=== PATIENT | male | born 1960 | race Caucasian/White ===

== ENCOUNTER 2024-01-22 06:02 | Day surgery (SDC) | payer OTHER, SELFPAY ==
[2024-01-09 06:53] VITALS: BMI 32.7
[2024-01-09 07:03] LABS: INR 1.99; PT 22.8 Sec (11.4-14.6)
[2024-01-09 07:07] LABS: ALT (SGPT) 23 U/L (0-50); AST (SGOT) 24 U/L (17-59); Albumin 4.2 g/dl (3.5-5.0); Alkaline Phosphatase 81 U/L (38-126); Blood Urea Nitrogen 20 mg/dl (9-20); Calcium 9.1 mg/dl (8.4-10.2); Carbon Dioxide 27 mmol/L (22-30); Chloride 106 mmol/L (98-107); Estimated Creatinine Clearance 74 ml/min; Glucose 105 mg/dl (70-99); Magnesium 2.1 mg/dl (1.6-2.3); Potassium 4.5 mmol/L (3.5-5.1); Sodium 138 mmol/L (135-145); Total Bilirubin 0.4 mg/dl (0.2-1.3); eGFR > 60.00
[2024-01-09 07:31] LABS: % Basophils 0.8 % (0-2); % Eosinophils 1.8 % (0-6); % Immature Granulocytes 0.5 % (0-0.5); % Lymphocytes 25.9 % (20.5-51.1); % Monocytes 9.2 % (1.7-9.3); % Neutrophils 61.8 % (42.2-75.2); Absolute Basophils 0.1 10^3/uL (0-0.2); Absolute Eosinophils 0.1 10^3/uL (0-0.7); Absolute Monocytes 0.7 10^3/uL (0.1-0.6); Absolute Neutrophils 4.7 10^3/uL (1.4-6.5); Hematocrit 42.9 % (39.0-52.0); Hemoglobin 14.2 g/dL (13.0-18.0); Mean Corp Hgb Conc. 33.1 g/dL (33.0-37.0); Mean Corpuscular Hgb 29.5 pg (27.0-31.0); Mean Platelet Volume 10.8 fL (7.4-10.4); Nucleated Red Blood Cells % 0 % (-); Platelet Count 256 10^3/uL (130-400); Red Blood Cell Count 4.82 10^6/uL (4.70-6.10); Red Cell Dist. Width 12.5 % (11.5-14.5); White Blood Cell Count 7.6 10^3/uL (4.8-10.8)
--- NOTE | 2024-01-09 07:50 | HPS.HSE ---
Family Physician
-
Family Physician: Amado Campos
Chief Complaint
-
Persistent atrial fibrillation.
History of Present Illness
The patient is a 63 year old male presenting today for persistent atrial fibrillation. The patient reports mild shortness of breath, most notably with exertion, and fatigue likely secondary to this diagnosis. He recently underwent two
failed cardioversions for his arrhythmia at [facility]. He is currently rate controlled without the use of pharmacological therapy. He takes Xarelto for oral anticoagulation. He notes that his current symptoms interfere with his
activities of daily living and are overall impacting his quality of life. He is interested in pursuing pulmonary vein isolation for further arrhythmia management. He denies any current complaints today such as chest pain, shortness of breath at
rest, palpitations, nausea, vomiting, diarrhea, lightheadedness, dizziness, cough, sore throat, or fever.
Medical History
Past Medical History
Past Medical History: Reports Other
Additional Past Medical History:
1. Persistent atrial fibrillation, status post cardioversion x2; oral anticoagulation with Xarelto.
2. Hypertension.
3. Hyperlipidemia.
4. Sinus bradycardia, asymptomatic, with current loop monitor.
5. Obstructive sleep apnea, compliant with CPAP.
6. Colon polyps.
7. Hemorrhoids with intermittent hemorrhoidal bleeding.
8. Osteoarthritis.
9. Obesity, BMI 32.7.
10. Current tobacco abuse.
Past Surgical History: Reports Other
Additional Past Surgical History:
1. Cardioversion x2.
2. Loop monitor implantation.
3. Left knee arthroscopy.
4. [place] tooth extraction.
5. Colonoscopy.
Social History
Tobacco: Smoker (He is a current 4 cigarette per day smoker who has been smoking for the past 30+ years. He is attempting to quit smoking altogether. )
Alcohol: None
Living: Other (He lives with his daughter in a 2 story row home in [place]. )
Family History
Family History: Not pertinent
Allergies / Home Medications
Allergy/Medication List:
Home medications:
1. Centrum multivitamin 1 tablet p.o. daily.
2. Nutrafol 2 capsule p.o. twice a day.
3. Xarelto 20 mg p.o. daily.
4. Rosuvastatin 10 mg p.o. at bedtime.
5. Telmisartan 20 mg p.o. daily.
Allergies: No known allergies.
Review of Systems
-
A 12 point ROS was completed and negative except as noted: Yes
Physical Exam
Vital Signs
Blood pressure 125/84. Heart rate 83. Respirations 18. Pulse ox 97%.
Height 5 feet, 6.5 inches. Weight 93.3 kg. BMI 32.7.
Physical Exam
General: Well Developed, Well Nourished and No Apparent Distress
HEENT: NormoCephalic, Moist mucous membranes, Atraumatic and PERRLA
Respiratory: Clear
Cardiac: Irregular Rhythm
GI: Soft, Non Tender, Non Distended and Other (Obese. )
Musculoskeletal: Normal Gait & Station
Skin: Warm and Dry
Neuro: AO x 3 and Nonfocal/grossly intact
Laboratory Results
-
01/09/24 06:25
01/09/24 06:25
Laboratory Results
PT 22.8 Sec (11.4-14.6) H 01/09/24 06:25
INR 1.99 01/09/24 06:25
Total Bilirubin 0.4 mg/dl (0.2-1.3) 01/09/24 06:25
AST 24 U/L (17-59) 01/09/24 06:25
ALT 23 U/L (0-50) 01/09/24 06:25
Alkaline Phosphatase 81 U/L (38-126) 01/09/24 06:25
Blood type A positive.
EKG 01/09/2024: Atrial fibrillation.
Chest CT 01/09/2024: No evidence of left atrial thrombus. There are no abnormal pleural or parenchymal pulmonary masses. There is no significant parenchymal airspace disease. There is no pleural effusion. There are no abnormal mediastinal masses.
There is no hilar lymphadenopathy. There is no mediastinal lymphadenopathy.
Echocardiogram 11/18/2023: Mild to moderately dilated left atrium. Ejection fraction is 55-60%.
Stress test 11/18/2023: No ECG criteria for or symptoms suggestive of ischemia. Normal perfusion imaging with normal left ventricular wall motion and systolic function.
Impression/Plan
-
IMPRESSION/PLAN:
1. Persistent atrial fibrillation: The patient is in need of pulmonary vein isolation with Dr. Scooby Mcarthur on 01/22/2024. The benefits and risks of the procedure have been explained to the patient. The patient understands these risks and
wishes to proceed. He will not be required to undergo a pre-procedural transesophageal echocardiogram as he has been compliant with his home oral anticoagulation. He is aware to take no medications the morning of his procedure.
[2024-01-22] VITALS (24 sets, daily range): BP systolic 96–113; BP diastolic 64–75; BMI 31.7
[2024-01-22] MEDS: TYLENOL 1000 MG PO (07:09)
[2024-01-22 08:51] LABS: ACT-LR - POC 329 Seconds (116-155)
[2024-01-22 09:39] LABS: ACT-LR - POC 377 Seconds (116-155)
[2024-01-22 09:56] LABS: ACT-LR - POC 319 Seconds (116-155)
[2024-01-22 10:55] LABS: ACT-LR - POC 343 Seconds (116-155)
--- NOTE | 2024-01-22 14:50 | ITS.CL.ABL ---
Student Accounts Manager - Ablation
Ablation
Procedure Report:
ELECTROPHYSIOLOGIC STUDY AND POSSIBLE ABLATION
DATE: 01/22/24
Primary Care Provider: Amado Campos
Primary art editor: Dr Ashish Cormier
INDICATION:
Symptomatic Atrial Fibrillation.
Persistent, longstanding
HISTORY: See H and P.
Symptomatic AF, poorly controlled with attempted medical therapy
HAS-BLED:
CHADSVASc: 1
HTN
PRESENTING RHYTHM: AF
HISTORY: See H and P.
Symptomatic AF, poorly controlled with attempted medical therapy.
ANTICOAGULATION: Xarelto 20 mg daily
'TIME-OUT': called and confirmed.
SEDATION/ANESTHESIA: provided via the anesthesia department using general anesthesia.
PROCEDURE:
Ultrasound Guidance performed by ga was utilized for femoral venous Vascular Access b/l.
A decapolar CS catheter was placed within the CS for mapping and pacing.
The intracardiac ultrasound catheter was positioned in the RA for continuous intracardiac ultrasound imaging.
Heparin bolus and infusion to target ACT at 300 -350 seconds was administered. Transseptal puncture was performed. This entailed advancing a sheath with dilator into the superior vena cava and withdrawing both (monitoring intracardiac ultrasound,
fluoroscopy and tip pressure) with the tip oriented toward the atrial septum. The fossa ovalis was engaged (indicated by sudden displacement of the sheath tip as well as tenting of the fossa seen on intracardiac ultrasound). Left atrial access
required a pass with the [place]rough needle extended. Left atrial catheter position was confirmed by pressure monitoring as well as fluoroscopy. The sheath was advanced over the dilator and positioned in the left atrium.
The multipolar mapping catheter was initially positioned through the transseptal sheath for high density mapping.
Geometry and voltage mapping was performed using the [employer] Pulse Select PFA catheter and Navex 3-D electroanatomical mapping.
A 3-D map was created using Navex. A 3-D reconstructed CT image was compared to the 3-D Navex map to assist in anatomic evaluation, mapping and ablation.
The [employer] Pulse Select PFA catheter and system was used for cardiac ablation. Catheter positioning was guided and confirmed using both I.C.E. and fluoroscopy.
PV isolation approach was used to electrically isolate each PV ostia. This involved both ostial ablation as well as antral ablation at each of the 4 pulmonary veins (left superior, left inferior, right superior, right inferior). He has a history
of longstanding persistent atrial fibrillation greater than 1 year and a markedly dilated left atrium as evidenced by intracardiac echocardiogram today. Atrial fibrillation persisted. Additional ablation lesion set was included to isolate the
posterior wall of the left atrium using pulsed electric field energy deliveries.
During left atrial ablation atrial fibrillation transition to a regular atrial tachycardia at a cycle at 240 ms. Entrainment from the lateral right atrial wall finds this area to be within the tachycardia circuit, entrainment from the proximal
coronary sinus is also within the tachycardia circuit and entrainment from the left atrium is outside the tachycardia circuit. This and electrocardiographic appearance suggest typical counterclockwise right atrial flutter. Cardioversion was
performed to more fully assess left atrial ablation. After cardioversion a full high density electroanatomical map using the [place] Grid was performed. This finds continued pulmonary vein conduction at the left superior pulmonary vein along its
superior anterior quadrant and at the left inferior pulmonary vein along its anterior quadrant for the ligament of Keith. The PulseSelect catheter was then substituted an additional pulse electric field energy was delivered to these areas to
fully isolate the pulmonary veins. During energy delivery atrial tachycardia consistent with what was previously entrained resumed. At this point the ablation catheter was withdrawn to the right atrium. The ablation catheter was removed and the
[place] HD grid catheter was substituted. Activation mapping, as well as entrainment at the CTI, diagnosed typical counterclockwise right atrial flutter.
A 4 mm tip irrigated contact sensing catheter was then substituted and ablation was performed along a 6:00 line in 30 degrees KYRGYZ from the tricuspid annulus down to the inferior vena cava. During RF energy delivery the tachycardia slowed from 240
ms to 250 ms and activation sequence changed. Remapping demonstrated block along the CTI. Remapping suggest earliest activation breaking through at the coronary sinus. Transseptal access was reobtained and remapping of the left atrium with the
Bowie HD grid catheter was performed demonstrating a focal area of early activity at the floor of the left atrium/coronary sinus at approximately 7:00 in KYRGYZ 30 projection. Unipolar configuration demonstrated a sharp QS. The RF ablation catheter
was then substituted and several RF energy's were delivered to this area with no interruption or change in the tachycardia. At this point it was decided to further remap the coronary sinus ostium from the right atrium. This demonstrated earliest
activation at the floor of the coronary sinus ostium. Unipolar electrogram demonstrated sharp QRS complex. RF energy was then delivered to this area abruptly terminating the tachycardia. Several more lesions were given in and around this area to
complete the ablation lesion set for this focal atrial tachycardia.
Programmed electrical stimulation then failed to induce any sustained arrhythmias.
I.C.E. :
Pre-Ablation Post-Ablation
LVEF: 50-55 % 50-55 %
WMA: none none
Pericardial effusion: trace posterior trace posterior
COMPLICATIONS:
None
SUMMARY:
- Mapping and ablation to isolate the PVs
- Additional AF ablation set after PVI (left atrial post wall ablation).
- Mapping and ablation of second (typical counterclockwise right atrial flutter) and a third tachycardia (focal coronary sinus ostium atrial tachycardia)
- 3-D Electroanatomical Mapping
- Intracardiac Ultrasound
Post ablation, I discussed today's findings and results with the patient's daughter, lauren.
RECOMMENDATIONS:
- Observe in monitored bed overnight.
- Maintain oral anticoagulation.
- Left atrial ablation to isolate the pulmonary veins and isolate the posterior wall of his markedly dilated left atrium required over 90 PFA applications. While no hemolysis has been reported with this PFA system ([place] PulseSelect), hemolysis
believed to be related to larger number of PFA deliveries has been observed with another PFA system. Will follow renal function closely, check LDH and haptoglobin as well.
- Office visit with me in 3 months.
- Continue cardiovascular care with Dr Cormier
Copy to:
Amado Campos
Dr Ashish Cormier
[2024-01-22 16:02] LABS: ALT (SGPT) 24 U/L (0-50); AST (SGOT) 79 U/L (17-59); Albumin 3.7 g/dl (3.5-5.0); Alkaline Phosphatase 68 U/L (38-126); Blood Urea Nitrogen 22 mg/dl (9-20); Calcium 8.4 mg/dl (8.4-10.2); Carbon Dioxide 20 mmol/L (22-30); Chloride 111 mmol/L (98-107); Estimated Creatinine Clearance 91 ml/min; Glucose 128 mg/dl (70-99); Potassium 4.8 mmol/L (3.5-5.1); Sodium 137 mmol/L (135-145); Total Bilirubin 1.3 mg/dl (0.2-1.3); Total Protein 6.3 g/dl (6.3-8.2); eGFR > 60.00
--- NOTE | 2024-01-22 16:30 | CM ---
Chart reviewed. Patient is independent of ADLS, lives with his daughter, in a 2 STH, total of 9 BRITANY, 0 DME. Plan is for the patient to return home. CM to follow
[2024-01-22] MEDS: XARELTO 20 MG PO (17:01)
[2024-01-22 20:33] LABS: Hepatitis C Antibody Negative (Negative)
[2024-01-22] MEDS: CRESTOR 10 MG PO (20:57)
--- NOTE | 2024-01-23 01:19 | PTCARENOTE ---
Pt. remains in NSR, rate 80's-low 100's, so far this shift. No complaints of CP/discomfort. Bilateral groin dressings intact (right with small amount old drainage, no change from beginning of shift), no hematoma, pedal pulses palpable. Pt. OOB
frequently, independent with ambulation. Currently sleeping.
[2024-01-23 02:53] VITALS: BP 112/75
[2024-01-23 03:14] LABS: Hematocrit 36.2 % (39.0-52.0); Hemoglobin 12.4 g/dL (13.0-18.0); Mean Corp Hgb Conc. 34.3 g/dL (33.0-37.0); Mean Corpuscular Volume 87.4 fL (80.0-94.0); Mean Platelet Volume 10.1 fL (7.4-10.4); Platelet Count 205 10^3/uL (130-400); Red Blood Cell Count 4.14 10^6/uL (4.70-6.10); Red Cell Dist. Width 13.4 % (11.5-14.5); White Blood Cell Count 16.1 10^3/uL (4.8-10.8)
[2024-01-23 03:50] LABS: ALT (SGPT) 23 U/L (0-50); AST (SGOT) 87 U/L (17-59); Albumin 3.7 g/dl (3.5-5.0); Alkaline Phosphatase 64 U/L (38-126); Blood Urea Nitrogen 22 mg/dl (9-20); Calcium 8.7 mg/dl (8.4-10.2); Carbon Dioxide 21 mmol/L (22-30); Chloride 111 mmol/L (98-107); Estimated Creatinine Clearance 102 ml/min; Glucose 119 mg/dl (70-99); LDH 307 U/L (120-246); Magnesium 2.1 mg/dl (1.6-2.3); Potassium 4.6 mmol/L (3.5-5.1); Sodium 136 mmol/L (135-145); Total Bilirubin 0.4 mg/dl (0.2-1.3); Total Protein 6.3 g/dl (6.3-8.2); eGFR > 60.00
[2024-01-23 07:22] VITALS: BP 122/81
[2024-01-23 07:40] LABS: ACT-LR - POC > 397 Seconds (116-155)
[2024-01-23 07:40] LABS: ACT-LR - POC > 397 Seconds (116-155)
[2024-01-23 07:40] LABS: ACT-LR - POC > 397 Seconds (116-155)
[2024-01-23] MEDS: COZAAR 25 MG PO (08:36)
[2024-01-23] MEDS: MILK OF MAGNESIA 30 ML PO (08:40)
--- NOTE | 2024-01-23 09:06 | PTCARENOTE ---
Assumed care of pt from night RN. Pt received awake and alert, Ox3. VSs, CM shows NSR/SB 50-100's, POX 98% on RA. Bilateral groins CDI with good CMS throughout limbs. Pt denies any pain or discomfort. MOM given as per DEC for constipation.
--- NOTE | 2024-01-23 09:11 | W.PN.CARDCBS ---
Addendum entered and electronically signed by Mitchel Cano DO 01/23/24 12:00:
I saw and examined the patient.
The Goldsmith Apprentice's note was reviewed and I agree with the note.
Comment:
Patient seen and examined. No complaints; denies cp, sob, palpitations, or weakness.
NAD, AOX3
S1, S2, RRR, no m/r/g
CTAB, non labored, no w/r/r
SNTND Bsx4
BL LE no edema
L fem site c/d/i soft no HT
R fem site with marked old bloody drainage, soft
Symptomatic persistent AF s/p PFA PVI and PW; typical CTI AFL s/p RFA and AT s/p RFA on 01/22/2024
Repeat lab work pending, if stable, OK for DC
Continue OAC
Post-procedure instructions and follow-up provided
Original Note:
Today's Communication / Plan
-
Repeat labs at 12
if stable plan for d/c home
continue OAC
Impression / Plan
-
Primary Care Provider: Amado Campos
Primary lower school spanish teacher: Dr Ashish Cormier
Impression:
Symptomatic persistent Afib
HTN
HLD
CHI/CPAP
ILR
Osteoarthritis
SUMMARY:
- Mapping and ablation to isolate the PVs
- Additional AF ablation set after PVI (left atrial post wall ablation).
- Mapping and ablation of second (typical counterclockwise right atrial flutter) and a third tachycardia (focal coronary sinus ostium atrial tachycardia)
- 3-D Electroanatomical Mapping
- Intracardiac Ultrasound
Plan:
-post complex PVI and RA flutter ablation 01/22/24 using PFA
-elevated LDH and bilirubin, Haptoglobin pending, Hbg and Cr stable mild hemolysis possibly related to over 90 PFA applications
-Left atrial ablation to isolate the pulmonary veins and isolate the posterior wall of his markedly dilated left atrium required over 90 PFA applications. While no hemolysis has been reported with this PFA system ([employer] PulseSelect), hemolysis
believed to be related to larger number of PFA deliveries has been observed with another PFA system. Will follow renal function closely, check LDH and haptoglobin as well.
-Will recheck CBC/CMP at 12 today
-mildly elevated AST, will trend
-tele SR
-groins stable
-continue OAC Xarelto
-Activity restrictions reviewed
-RTW in 1 week, dose a lot of heavy lifting
-f/u Dr. Cormier
-home this afternoon if labs stable
Progress Note - Fabrication Lead
Subjective
Date of Service: January 23, 2024
no cp, sob
Objective
Labs:
Labs
Hgb 12.4 g/dL (13.0-18.0) L 01/23/24 03:05
Hct 36.2 % (39.0-52.0) L 01/23/24 03:05
Plt Count 205 10^3/uL (130-400) 01/23/24 03:05
PT 22.8 Sec (11.4-14.6) H 01/09/24 06:25
INR 1.99 01/09/24 06:25
Sodium 136 mmol/L (135-145) 01/23/24 03:05
Potassium 4.6 mmol/L (3.5-5.1) 01/23/24 03:05
BUN 22 mg/dl (9-20) H 01/23/24 03:05
Creatinine 0.8 mg/dL (0.7-1.3) 01/23/24 03:05
Glucose 119 mg/dl (70-99) H 01/23/24 03:05
Vital Signs and I&O:
Vital Signs
Temp Pulse Resp BP Pulse Ox
97.6 F 91 18 122/81 98
01/23/24 07:00 01/23/24 07:22 01/23/24 07:00 01/23/24 07:22 01/23/24 09:04
Vital Signs
Temp Pulse Resp BP Pulse Ox
97.6 F 91 18 122/81 98
01/23/24 07:00 01/23/24 07:22 01/23/24 07:00 01/23/24 07:22 01/23/24 09:04
Intake & Output
01/21/24 01/22/24 01/23/24 01/24/24
06:59 06:59 06:59 06:59
Intake Total 2380 / 2380
Balance 2380 / 2380
Physical Exam
Physical Exam
NAD, AOX3
S1, S2, RRR
CTAB< non labored
SNTND Bsx4
L fem site c/d/i soft no HT
R fem site with marked old bloody drainage, soft
--- NOTE | 2024-01-23 10:28 | CM ---
Chart reviewed. Patient is independent of ADLS, lives with his daughter in a 2 [address], 9 BRITANY, 0 DME. Plan is for the patient to return home.
[2024-01-23 11:13] VITALS: BP 112/74
[2024-01-23] MEDS: XARELTO 20 MG PO (12:06)
[2024-01-23 13:24] LABS: ALT (SGPT) 25 U/L (0-50); AST (SGOT) 76 U/L (17-59); Albumin 4.3 g/dl (3.5-5.0); Alkaline Phosphatase 78 U/L (38-126); Blood Urea Nitrogen 19 mg/dl (9-20); Calcium 9.3 mg/dl (8.4-10.2); Carbon Dioxide 26 mmol/L (22-30); Chloride 103 mmol/L (98-107); Estimated Creatinine Clearance 102 ml/min; Glucose 123 mg/dl (70-99); Potassium 4.1 mmol/L (3.5-5.1); Sodium 136 mmol/L (135-145); Total Bilirubin 0.5 mg/dl (0.2-1.3); Total Protein 6.9 g/dl (6.3-8.2); eGFR > 60.00
[2024-01-23 14:55] LABS: Hematocrit 40.5 % (39.0-52.0); Hemoglobin 13.5 g/dL (13.0-18.0); Mean Corp Hgb Conc. 33.3 g/dL (33.0-37.0); Mean Corpuscular Hgb 30.1 pg (27.0-31.0); Mean Corpuscular Volume 90.2 fL (80.0-94.0); Mean Platelet Volume 10.1 fL (7.4-10.4); Platelet Count 226 10^3/uL (130-400); Red Blood Cell Count 4.49 10^6/uL (4.70-6.10); Red Cell Dist. Width 13.4 % (11.5-14.5); White Blood Cell Count 15.3 10^3/uL (4.8-10.8)
--- NOTE | 2024-01-23 15:11 | W.DS.TRANS ---
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
-
Discharge Instructions:
Sleep Apnea Risk High
Discharge Diagnosis/Procedures Afib post ablation
Diet Low Cholesterol
Driving Restrictions No driving for 24 hours
Instructions:
Stand-Alone Forms: DC Instructions- Cath/EP Lab
Return to Work
Changes to Home Medications: No
Discharge Medications:
DC Medications w/original date entered in [facility]
Nutrafol 2 cap PO BID hair growth 01/06/24
rivaroxaban 20 mg tablet (Xarelto) 20 mg PO DAILY 01/06/24
rosuvastatin 10 mg tablet 10 mg PO HS 01/06/24
telmisartan 20 mg tablet 20 mg PO DAILY 01/06/24
multivitamin 1 tab PO DAILY 01/22/24
Home Medication Changes
Pending Results: Yes
Additional Pending Results:
haptoglobin
Total time spent discharging patient (in min): 45
--- NOTE | 2024-01-23 16:00 | PTCARENOTE ---
All D/C info reviewed with pt, all questions answered. Pt d/c'd home with daughter.
[2024-01-23 16:16] VITALS: BP 118/78
[2024-01-24 14:58] LABS: Haptoglobin 94 mg/dL (30-200)
== END 2024-01-23 16:00 | disposition home or self-care (01) ==
LOC: CATH 06:02
PROVIDERS: Nurse Practitioner Adult Health; ATTENDING PHYSICIAN Internal Medicine Cardiovascular Disease; FAMILY PHYSICIAN Family Medicine; OTHER PHYSICIAN Internal Medicine Cardiovascular Disease
DX: I48.11 Longstanding persistent atrial fibrillation (principal); I10 Essential (primary) hypertension; E78.5 Hyperlipidemia, unspecified; G47.33 Obstructive sleep apnea (adult) (pediatric); Z86.010 Personal history of colon polyps; K64.9 Unspecified hemorrhoids; M19.90 Unspecified osteoarthritis, unspecified site; E66.9 Obesity, unspecified; Z68.32 Body mass index [BMI] 32.0-32.9, adult; F17.210 Nicotine dependence, cigarettes, uncomplicated; Z79.01 Long term (current) use of anticoagulants
CPT/HCPCS: C1732; C1894; C1769; C1730; C2630; C1892; C1759; 36415; 75572; 76937; 80053; 83010; 83615; 83735; 85025; 85027; 85347; 85610; 86803; 86850; 86900; 86901; 93005; 93655; 93656; 93657; Q9967